=== PATIENT | female | born 1970 | race Caucasian/White ===

== ENCOUNTER 2018-12-23 09:52 | Emergency (ER) | payer OTHER ==
[~2018-12-23] VITALS: Ht 167.6 cm; Wt 59.1 kg
[2018-12-23 11:08] LABS: BASO # 0.1 10^3/uL (0.0-0.2); BASO % 0.5 % (0.0-1.0); EOS % 0.1 % (0.0-3.0); HEMATOCRIT 48.1 % (36.0-47.0); HEMOGLOBIN 15.8 g/dl (12.0-15.5); LYMPH # 0.8 10^3/uL (1.5-4.5); LYMPH % 7.6 % (24.0-44.0); MEAN CORPUSCULAR HEMOGLOBIN 32.3 pg (27.0-33.0); MEAN CORPUSCULAR HGB CONC 32.8 g/dl (32.0-36.5); MEAN CORPUSCULAR VOLUME 98.4 fl (80.0-96.0); MONO # 0.4 10^3/uL (0.0-0.8); MONO % 3.3 % (0.0-5.0); NEUTROPHILS # 9.5 10^3/uL (1.8-7.7); NEUTROPHILS % 88.1 % (36.0-66.0); PLATELET COUNT, AUTOMATED 265 10^3/uL (150-450); RED BLOOD COUNT 4.89 10^6/uL (4.00-5.40); WHITE BLOOD COUNT 10.8 10^3/uL (4.0-10.0)
[2018-12-23] MEDS ORDERED: METOCLOPRAMIDE INJ 10MG/2ML VIAL (J2765) As Ordered ONE (11:08)
[2018-12-23] MEDS ORDERED: NS 1,000 ML IV ONE ×2 (11:15→12:00)
[2018-12-23] MEDS ORDERED: METOCLOPRAMIDE INJ 10MG/2ML VIAL (J2765) IV ONE (11:15)
[2018-12-23] MEDS ORDERED: LEVO50TA5 PO (11:15)
[2018-12-23] MEDS ORDERED: ZONI100C2 PO (11:15)
[2018-12-23] MEDS ORDERED: CAMRTAB2 PO (11:15)
[2018-12-23] MEDS ORDERED: MECLIZINE 25 MG TABLET PO ONE (11:30)
[2018-12-23 11:41] LABS: BLOOD UREA NITROGEN 17 MG/DL (7-18); CALCIUM LEVEL 8.7 MG/DL (8.5-10.1); CARBON DIOXIDE LEVEL 24 MEQ/L (21-32); CHLORIDE LEVEL 112 MEQ/L (98-107); CPK CREATINE PHOSPHOKINASE 112 U/L (26-192); CREATININE FOR GFR 1.34 MG/DL (0.55-1.30); GLOMERULAR FILTRATION RATE 44.9 (>58); GLUCOSE, FASTING 146 MG/DL (70-100); MAGNESIUM LEVEL 2.4 MG/DL (1.8-2.4); MB/CK RELATIVE INDEX 0.98 (< OR =4); POTASSIUM SERUM 4.1 MEQ/L (3.5-5.1); SODIUM LEVEL 142 MEQ/L (136-145); TROPONIN I < 0.02 NG/ML (< 0.10)
--- NOTE | 2018-12-23 11:44 | REP ---
CHEST, SINGLE VIEW: There is no evidence of acute infiltrate. No pleural effusion is seen. The heart is normal in size. The mediastinal silhouette is unremarkable. The visualized osseous structures are intact. IMPRESSION: No acute pulmonary disease. Electronically Signed by Eugenio York MD 12/28/2018 11:40 A
--- NOTE | 2018-12-23 11:57 | REP ---
Head CT without contrast: History: Dizziness. Trauma. Comparison study: Comparison brain MRI study May 26, 2007. CT findings: Bone window settings demonstrate an intact bony calvarium. There is no evidence of skull fracture or incidental bony calvarial lesion. The visualized paranasal sinuses appear clear. No intraorbital abnormality is seen. On soft tissue window setting images; the lateral, third, and fourth ventricles are normal in size and position. York-white differentiation pattern is normal above and below the tentorium. There are is no evidence of intracranial hemorrhage. No mass, edema, infarction, or midline shift is seen. No extra-axial fluid collection is appreciated. Impression: Negative noncontrast head CT. Electronically Signed by Luigi Izquierdo MD 12/23/2018 11:48 A
[2018-12-23] MEDS ORDERED: MECL1CHW PO (16:19)
[2018-12-23 17:17] VITALS: BP 125/70
--- NOTE | 2018-12-23 19:18 | ECGEPIP ---
Stationary ECG Study [facility] - ED Test Date: 2018-12-23 Pat Name: PEGGY ENNIS Department: Room: - Gender: F Television Mechanic: : 1970 Requested By: Amada Weinberg Order Number: [id number] Reading MD: Keaton Ledesma Measurements Intervals [place] Rate: 57 P: 76 CA: 152 QRS: 71 QRSD: 94 T: 64 QT: 479 QTc: 469 Interpretive Statements SINUS BRADYCARDIA POSSIBLE LEFT ATRIAL ENLARGEMENT PROLONGED QT INTERVAL NO PRIORS FOR COMPARISON Electronically Signed On 12-23-2018 19:17:46 EDT by Keaton Ledesma
== END 2018-12-23 17:18 | disposition home or self-care (01) ==
LOC: M ED 09:52
DX: H81.49 Vertigo of central origin, unspecified ear (principal); R00.1 Bradycardia, unspecified; G43.909 Migraine, unspecified, not intractable, without status migrainosus; N18.3 Chronic kidney disease, stage 3 (moderate); Z79.899 Other long term (current) drug therapy
CPT/HCPCS: 70450; 71045; 80048; 82550; 82553; 83735; 84443; 84484; 85025; 93005; 93041; 94760; 96361; 96374; 99285; J2765

== ENCOUNTER → 2020-04-30 | Outpatient (REF) | payer OTHER ==
[~2020-04-30] MED LIST: CAMRTAB2 PO; LEVO50TA5 PO; MECL1CHW PO; ZONI100C17 PO
[2020-04-30 13:43] LABS: HEPATITIS B SURFACE ANTIGEN NEGATIVE (NEGATIVE)
[2020-04-30 14:10] LABS: HEPATITIS C VIRUS ABY INDEX 0.1 INDEX (<0.8)
[2020-04-30 14:11] LABS: HEPATITIS B CORE ANTIBODY IGM NEGATIVE (NEGATIVE)
[2020-04-30 14:13] LABS: HEPATITIS A ANTIBODY IGM NEGATIVE (NEGATIVE)
== END ==
LOC: M LAB REF 12:07
PROVIDERS: ATTEND Family Medicine
DX: R79.89 Other specified abnormal findings of blood chemistry (principal)

== ENCOUNTER → 2020-06-07 | Outpatient (CLI) | payer OTHER ==
--- NOTE | 2020-06-07 12:09 | REP ---
INDICATION: CERVICALGIA COMPARISON: None. TECHNIQUE: AP, lateral, flexion/extension, bilateral oblique, and open-mouth views. FINDINGS: Alignment and lordosis is maintained. There is no evidence for acute fracture / compression injury or subluxation. Open mouth view demonstrates normal C1-C2 articulation and odontoid process. Mild age-related changes include endplate sclerosis with minimal disc space narrowing and very subtle marginal spurring primarily involving C4-5 and C5-6. IMPRESSION: Mild age-related changes primarily involving C4-5 and C5-6. <Electronically signed by Eric Mckinley > 06/07/20 [id number]
== END ==
LOC: M WUC 11:03
PROVIDERS: ATTEND Physician Assistant
DX: M50.321 Other cervical disc degeneration at C4-C5 level (principal); M50.322 Other cervical disc degeneration at C5-C6 level

== ENCOUNTER → 2020-07-04 | Outpatient (REF) | payer OTHER ==
[2020-07-04 17:12] LABS: INR 0.92; PROTHROMBIN TIME 12.5 SECONDS (12.5-14.3)
[2020-07-06 17:06] LABS: ALPHA 1 ANTITRYPSIN 159 mg/dL (101-187); ANTI-MITOCHONDRIAL ANTIBODY <20.0 Units (0.0-20.0); ANTI-SMOOTH MUSCLE ANTIBODY 8 Units (0-19); CERULOPLASMIN 25.4 mg/dL (19.0-39.0)
== END ==
LOC: M LAB REF 16:19
PROVIDERS: ATTEND Family Medicine
DX: M50.10 Cervical disc disorder with radiculopathy, unspecified cervical region (principal); R53.83 Other fatigue; R94.5 Abnormal results of liver function studies

== ENCOUNTER → 2020-09-04 | Outpatient (REF) | payer OTHER ==
[2020-09-04 18:18] LABS: HEPATITIS B SURFACE ANTIBODY NEGATIVE (POSITIVE)
[2020-09-04 18:28] LABS: HEPATITIS B SURFACE ANTIGEN NEGATIVE (NEGATIVE)
[2020-09-04 18:57] LABS: HEPATITIS C VIRUS ABY INDEX < 0.0 INDEX (<0.8)
[2020-09-06 18:07] LABS: ANTINUCLEAR ANTIBODIES DIRECT Negative (Negative); ENDOMYSIAL ABY IgA Negative (Negative); HBVCOREDIFF1 Negative (Negative); HBVCOREDIFF2 Negative (Negative); LIVER-KIDNEY MICROSOMAL ABY <20.1 Units (0.0-20.0); TISSUE TRANSGLUTAMINASE IgA <2 U/mL (0-3)
== END ==
LOC: M LAB REF 16:18
PROVIDERS: ATTEND Family Medicine
DX: N39.0 Urinary tract infection, site not specified (principal)

== ENCOUNTER → 2021-10-20 | Outpatient (CLI) | payer OTHER | LOC: M PLAIMG 07:54 | PROVIDERS: ATTEND Physician Assistant | DX: M47.22 Other spondylosis with radiculopathy, cervical region (principal); M50.33 Other cervical disc degeneration, cervicothoracic region; M50.20 Other cervical disc displacement, unspecified cervical region ==

== ENCOUNTER → 2024-09-04 | Outpatient (REF) | payer OTHER ==
[~2024-09-04] MED LIST changes: -ZONI100C17 PO; +ZONI100C67 PO
[2024-09-04 18:00] LABS: LIPASE 31 U/L (12-53)
[2024-09-04 18:02] LABS: AMYLASE 96 U/L (30-118)
== END ==
LOC: M LAB REF 16:07
PROVIDERS: ATTEND Family Medicine
DX: R10.31 Right lower quadrant pain (principal)

== ENCOUNTER → 2025-01-03 | Outpatient (REF) | payer OTHER | LOC: M LAB REF 17:31 | PROVIDERS: ATTEND Family Medicine | DX: M25.50 Pain in unspecified joint (principal) ==